=== PATIENT | male | born 1955 | race Caucasian/White ===

== ENCOUNTER → 2017-10-16 10:01 | Outpatient (CLI) | payer OTHER, SELFPAY ==
[2017-10-16 10:24] LABS: Add Manual Diff / Slide Review NO; Basophils Percent Auto 0.5 % (0-2); Hematocrit 41.2 % (41-53); Hemoglobin 13.9 g/dL (13.5-17.5); Mean Corpuscular HGB Conc 33.7 % (30-36); Mean Corpuscular Hemoglobin 28.8 PG (26-34); Mean Corpuscular Volume 85.5 fL (80-100); Monocytes Percent Auto 10.4 % (3-14); Neutrophils Absolute Auto 1900 /uL (3000-5900); Neutrophils Percent Auto 50.1 % (50-75); Platelet Count 227 X10^3/uL (150-400); Red Blood Cell Count 4.82 X10^6/uL (4.5-5.9); Red Cell Distribution Width 13.6 % (11.6-14.8); White Blood Cell Count 3.9 X10^3/uL (4.5-11.0)
[2017-10-16 10:47] LABS: Alanine Aminotransferase 33 IU/L (21-72); Albumin 4.4 g/dL (3.5-5.0); Albumin Globulin Ratio 1.4 (1.0-2.8); Alkaline Phosphatase 71 U/L (38-126); Aspartate Aminotransferase 38 IU/L (17-59); Bilirubin Total 0.8 mg/dL (0.2-1.3); Blood Urea Nitrogen 20 mg/dL (9-20); Calcium 9.1 mg/dL (8.4-10.2); Carbon Dioxide 27 mmol/L (22-32); Chloride 100 mmol/L (98-107); Estimated Glomerular Filt Rate > 60.0 mL/min (>60); Globulin 3.2 g/dL (1.7-4.1); Glucose 86 mg/dL (80-110); HEMOLYSIS < 15 (0-50); Lactate Dehydrogenase 427 U/L (313-618); Potassium 4.2 mmol/L (3.4-5.1); Sodium 141 mmol/L (137-145); Total Protein 7.6 g/dL (6.3-8.2)
[2017-10-20 07:56] LABS: Beta-2-Microglobulin 1.68 mg/L (< 2.52)
== END ==
PROVIDERS: PCP Internal Medicine; Visit Provider Internal Medicine Hematology & Oncology
DX: C82.80 Other types of follicular lymphoma, unspecified site (principal)
CPT/HCPCS: 36415; 80053; 82232; 83615; 85025

== ENCOUNTER → 2018-01-22 09:27 | Outpatient (CLI) | payer OTHER, SELFPAY ==
[2018-01-22 09:40] LABS: Add Manual Diff / Slide Review NO; Basophils Percent Auto 0.6 % (0-2); Eosinophils Percent Auto 2.2 % (2-4); Hematocrit 41.7 % (41-53); Lymphocytes Percent Auto 35.3 % (25-40); Mean Corpuscular HGB Conc 33.7 % (30-36); Mean Corpuscular Volume 86.1 fL (80-100); Neutrophils Absolute Auto 1700 /uL (3000-5900); Neutrophils Percent Auto 50.9 % (50-75); Platelet Count 278 X10^3/uL (150-400); Red Blood Cell Count 4.84 X10^6/uL (4.5-5.9); Red Cell Distribution Width 13.3 % (11.6-14.8); White Blood Cell Count 3.4 X10^3/uL (4.5-11.0)
[2018-01-22 09:58] LABS: Alanine Aminotransferase 30 IU/L (21-72); Albumin 4.6 g/dL (3.5-5.0); Albumin Globulin Ratio 1.5 (1.0-2.8); Alkaline Phosphatase 60 U/L (38-126); Aspartate Aminotransferase 41 IU/L (17-59); Bilirubin Total 0.7 mg/dL (0.2-1.3); Blood Urea Nitrogen 16 mg/dL (9-20); Calcium 9.3 mg/dL (8.4-10.2); Carbon Dioxide 30 mmol/L (22-32); Chloride 101 mmol/L (98-107); Estimated Glomerular Filt Rate > 60.0 mL/min (>60); Globulin 3.1 g/dL (1.7-4.1); Glucose 128 mg/dL (80-110); HEMOLYSIS < 15 (0-50); Lactate Dehydrogenase 478 U/L (313-618); Potassium 5.2 mmol/L (3.4-5.1); Sodium 141 mmol/L (137-145); Total Protein 7.7 g/dL (6.3-8.2)
[2018-01-23 15:11] LABS: Beta-2-Microglobulin 1.53 mg/L (< 2.52)
--- NOTE | 2018-01-31 12:34 | PC.NURSE ---
Mrs. Mccoy was transferred to me on the phone on 01/31/18 at 12:15 very upset because she had just found out that Frank's appointment had been moved to Monday with Dr. Ugalde instead of today with Janice Horn. She used a raised voice and swear words to say that she was very unhappy with the administrative process and finding out same day about an appointment being cancelled was not okay. I told her I would investigate and find out what happened. On investigating and with documentation we found out that when Frank was here on 01/22/18 for labs, he was told in person of Janice's absence and offered the appointment with Dr. Ugalde. I called Ian Mccoy back to explain it to her. She was surprised and said Frank never told her. I gave her the options to keep his appointment with Dr. Ugalde, establish with the [facility] credentialed Dr. Westbrook or to seek care at another facility. She stated she would talk with Frank and call us back.
== END ==
PROVIDERS: Internal Medicine Hematology & Oncology; PCP Internal Medicine; Visit Provider Nurse Practitioner Gerontology
DX: C85.90 Non-Hodgkin lymphoma, unspecified, unspecified site (principal)
CPT/HCPCS: 36415; 80053; 82232; 83615; 85025

== ENCOUNTER 2018-02-05 11:30 | Oncology outpatient (ONC) | payer OTHER, SELFPAY ==
[2017-10-31 15:49] VITALS: BP 126/83; PULSE 56; RESP 14; TEMP 36.8; O2SAT 98
--- NOTE | 2017-11-02 11:37 | ONC.GEN.PN ---
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 Baseline PET scan on 06/23/2017 confirmed extensive right axillary lymphadenopathy. The largest danelle mass measured 38 x 61 mm in diameter. SUV uptake was 5.6. Contralateral pathologic lymphadenopathy was also seen in the right axilla, with SUV uptake of 3.9. A danelle mesenteric mass was also noted, with SUV uptake of 4.5. There was evidence of uptake in the left periaortic lymph node, as well as in a left iliac lymph node. Patient was taken to the OR on 07/04/2017, were Dr. Pimentel did a wide excisional biopsy of the right axilla. A fair amount of danelle tissue was reportedly removed, about the size of a fist. Final pathology showed low-grade lymphoma, 8-10% of which was follicular, and the remaining 90% revealed more of a diffuse pathologic pattern. Observation only was recommended. The patient was then seen in [place], by Dr. Mi, for a 2nd opinion. Dr. Mi concurred with me, that cautious observation could be pursued for the short term. Future treatment options were also discussed with the patient during that visitation in [place]. History of Present Illness History Of Present Illness: 11/02/17 11:42 Frank returns today for routine triage. He is again accompanied by his very supportive , Ian. He was last seen in the clinic 8 weeks ago. Since that visitation, there has been unequivocal improvement in his overall strength and stamina. He denies any new lumps or bumps. He denies any recent fever, chills or night sweats. His appetite remains excellent. His spirits are good. He remains physically active. Home Medications and Allergies Allergies Allergy/AdvReac Type Severity Reaction Status Date / Time No Known Drug Allergies Allergy Verified 10/31/17 15:49 Exam Exam: Blood pressure 126/84. Temperature 98.2?. Pulse rate 56. O2 saturation on room air was 98%. Weight 199 lb. The oropharynx today was clear. Both lungs were clear to auscultation and percussion. Once again, there was no residual mass effect appreciated in the right axilla. Minimal lymphadenopathy was noted today in the left axilla. I felt a single danelle mass in the mid left inguinal area. No significant lymphadenopathy was noted today in the right inguinal area. No pathologic lymphadenopathy was noted today in the pre or postauricular, neck, chin, supraclavicular or epitrochlear areas. Heart sounds were fine. His abdomen was soft, nontender and without palpable organomegaly. There was no distal edema. Skin examination was unrevealing. Results - Labs Blood work from October 16 showed a white count of 3,900 with a normal differential. ANC 1,900. Hemoglobin 13.9. MCV 86. Platelet count 227,000. Beta 2 microglobulin level was 1.68. LDH was normal at 427. Creatinine was 0.8. Transaminases and alkaline phosphatase were normal. Total bilirubin 0.8. Impression Frank looks great today!! There has been unequivocal partial regression in his lymphadenopathy since his last visitation 8 weeks ago. His performance status remains excellent. Continued observation is warranted. Due to my upcoming departure from this clinic next month, I will request follow-up with our nurse practitioner in 3 months. His surveillance laboratory will be procured 1 week prior to that visitation. I wished him well.
--- NOTE | 2017-11-06 10:07 | ONC.NAV ---
Description: Reimbursement letter to [employer]: Per patient's request, this [employer] completed a letter advocating for reimbursement for their last visit with Dr. Katz, along with the [employer] medical reimbursement request forms. Pt had asked that we do this, although this [employer] did explain to him that it was unlikely to be successful. Sent to patient for submission.
[2018-02-05 12:16] VITALS: BP 151/76; PULSE 48; RESP 16; TEMP 36.2; O2SAT 99
--- NOTE | 2018-02-05 12:46 | ONC.PN ---
PN -Subjective Interval history: Frank Mccoy is a 62-year-old overall very healthy gentleman, returning today for follow-up of untreated advanced stage low-grade follicular lymphoma. He initially presented with right axillary and bilateral groin adenopathy in 04/2017, without B symptoms. Core needle biopsy of right axillary lymph node on 05/26/2017 was suggestive of follicular lymphoma, diffuse histologic pattern, grade 1-2, Ki-67 approximately 5-15%. He subsequently underwent excisional biopsy of right axillary lymph node on 07/04/2017. The result was confirmatory of initial diagnosis, consistent with follicular lymphoma, grade 1-2. Approximately 8-10% showed follicular/nodular histologic pattern, and the remaining 90% or so showed diffuse histologic pattern. Staging PET-CT 06/23/2017 showed hypermetabolic lymphadenopathy in bilateral axillary, left external iliac, bilateral inguinal, and a mesenteric danelle mass. Elsewhere, there were normal sized or slightly enlarged lower cervical/supraclavicular, left periaortic, right external iliac lymph nodes with low level FDG uptake. These results are consistent with at least stage III disease. Patient was evaluated by Dr. Lawrence Mi at [facility] in 08/2017. At the time, he still had palpable, somewhat painful/tender adenopathy in groins and right axilla. Since then, interestingly these lymph nodes have spontaneously regressed and he feels very well. He has not been able to palpate any enlarged lymph nodes lately. 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 He denies fever chills night sweats, and has not had any weight loss. Home Medications and Allergies Allergies Allergy/AdvReac Type Severity Reaction Status Date / Time No Known Drug Allergies Allergy Verified 10/31/17 15:49 Exam Vital signs: Last Vital Signs Temp 97.1 F L 02/05/18 12:16 Pulse 48 L 02/05/18 12:16 Resp 16 02/05/18 12:16 BP 151/76 H 02/05/18 12:16 Pulse Ox 99 02/05/18 12:16 - Constitutional positive no acute distress - Routine HEENT Exam Head: Present: normocephalic, atraumatic Eye: Present: EOMI, PERRL ENT: Present: mucous membranes moist - Routine Neck Exam Present: supple. Absent: lymphadenopathy, thyromegaly - Routine Respiratory Exam Present: Clear to auscultation bilaterally - Routine Cardiovascular Exam Present: RRR - Routine Abdominal Exam Present: soft. Absent: organomegaly, mass - Routine Extremities Exam Absent: edema Results - Imaging Additional studies: Procedures Closure of skin and subcutaneous tissue of other sites (06/18/10) Assessment and Plan (1) Follicular low grade B-cell lymphoma Current visit: Yes Status: Acute 62-year-old male, PS 0, with stage III, grade 1-2, follicular lymphoma, without extra danelle involvement. He has not received any therapy for this so far. Up until 4-6 months ago, he had palpable, slightly tender adenopathy in axillary and inguinal areas, but they have spontaneously regressed without any specific therapy. This spontaneous regression seems to have been triggered after excisional lymph node biopsy (perhaps the procedure somehow induced immune response). On exam today, there is no palpable adenopathy anywhere and the patient is completely non symptomatic. His labs are normal including CBC, CMP and beta 2 microglobulin. There is no indication to start therapy. I have given this gentleman a follow-up appointment for 6 months. A week prior to visit, we will schedule CT N/C/a/P with contrast, and labs including CBC, CMP, LDH and beta 2 microglobulin.
--- NOTE | 2018-02-05 13:06 | P.PNONC_ITS ---
PN -Subjective Interval history: Frank Mccoy is a 62-year-old overall very healthy gentleman, returning today for follow-up of untreated advanced stage low-grade follicular lymphoma. He initially presented with right axillary and bilateral groin adenopathy in 2016, without B symptoms. Core needle biopsy of right axillary lymph node on was suggestive of follicular lymphoma, diffuse histologic pattern, grade 1-2, Ki-67 approximately 5-15%. He subsequently underwent excisional biopsy of right axillary lymph node on 07/04/2017. The result was confirmatory of initial diagnosis, consistent with follicular lymphoma, grade 1-2. Approximately 8-10% showed follicular/nodular histologic pattern, and the remaining 90% or so showed diffuse histologic pattern. Staging PET-CT 2017 showed hypermetabolic lymphadenopathy in bilateral axillary, left external iliac, bilateral inguinal, and a mesenteric danelle mass. Elsewhere, there were normal sized or slightly enlarged lower cervical/supraclavicular, left periaortic, right external iliac lymph nodes with low level FDG uptake. These results are consistent with at least stage III disease. Patient was evaluated by Dr. Lawrence Mi at [facility] in 08/2017. At the time, he still had palpable, somewhat painful/tender adenopathy in groins and right axilla. Since then, interestingly these lymph nodes have spontaneously regressed and he feels very well. He has not been able to palpate any enlarged lymph nodes lately. 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 He denies fever chills night sweats, and has not had any weight loss. Home Medications and Allergies Allergies Allergy/AdvReac Type Severity Reaction Status Date / Time No Known Drug Allergies Allergy Verified 10/31/17 15:49 Exam Vital signs: Last Vital Signs Temp 97.1 F L 02/05/18 12:16 Pulse 48 L 02/05/18 12:16 Resp 16 02/05/18 12:16 BP 151/76 H 02/05/18 12:16 Pulse Ox 99 02/05/18 12:16 - Constitutional positive no acute distress - Routine HEENT Exam Head: Present: normocephalic, atraumatic Eye: Present: EOMI, PERRL ENT: Present: mucous membranes moist - Routine Neck Exam Present: supple. Absent: lymphadenopathy, thyromegaly - Routine Respiratory Exam Present: Clear to auscultation bilaterally - Routine Cardiovascular Exam Present: RRR - Routine Abdominal Exam Present: soft. Absent: organomegaly, mass - Routine Extremities Exam Absent: edema Results - Imaging Additional studies: Procedures Closure of skin and subcutaneous tissue of other sites (06/18/10) Assessment and Plan (1) Follicular low grade B-cell lymphoma Current visit: Yes Status: Acute 62-year-old male, PS 0, with stage III, grade 1-2, follicular lymphoma, without extra danelle involvement. He has not received any therapy for this so far. Up until 4-6 months ago, he had palpable, slightly tender adenopathy in axillary and inguinal areas, but they have spontaneously regressed without any specific therapy. This spontaneous regression seems to have been triggered after excisional lymph node biopsy (perhaps the procedure somehow induced immune response). On exam today, there is no palpable adenopathy anywhere and the patient is completely non symptomatic. His labs are normal including CBC, CMP and beta 2 microglobulin. There is no indication to start therapy. I have given this gentleman a follow-up appointment for 6 months. A week prior to visit, we will schedule CT N/C/a/P with contrast, and labs including CBC, CMP , LDH and beta 2 microglobulin.
== END 2018-02-06 12:00 ==
PROVIDERS: PCP Internal Medicine; Visit Provider Internal Medicine Hematology & Oncology
DX: C82.80 Other types of follicular lymphoma, unspecified site (principal)
CPT/HCPCS: 99215

== ENCOUNTER 2018-03-19 13:00 | Oncology outpatient (ONC) | payer OTHER, SELFPAY ==
--- NOTE | 2018-03-19 13:04 | ONC.APRN.PN ---
PN -Subjective Interval history: The patient is a 62-year-old male who is being seen in the clinic March 19, 2018 for routine surveillance of untreated advanced stage low-grade follicular lymphoma. He presents today stating ?I wanted to meet with you and get your opinion. The patient has previously consulted with Dr Katz, Dr Ugalde as well as [facility]. All remain in agreement no indication to treat until pt has persistent symptoms. Overall the patient reports he has been feeling ?great?. Activity tolerance is excellent, he remains quite active. Appetite is excellent specifically no early satiety. Weight is stable. No new pain. No new lumps or bumps. No night sweats. No chills. No fevers. No recent illnesses or infections. No issue with bladder or bowel habits. The patient reports he has 1 palpable lymph node in his left groin about the size of a BB which has not changed in the past 3 months, has not gotten any bigger also no pain associated. DIAGNOSIS: Recently confirmed stage III low-grade follicular non-Hodgkin lymphoma. I last saw this gentleman formally on 06/16/2107. During that visitation, the patient had a diagnostic PET scan procured on June 23, confirming extensive right axillary lymphadenopathy. The largest danelle mass measured 38 x 61 mm in diameter. The SUV was 5.6. Contralateral pathologic lymphadenopathy was also seen in the left axilla with an SUV of 3.9. A danelle mesenteric mass was also noted with an SUV of 4.5. There was evidence of uptake in a left periaortic lymph node as well as a left iliac lymph node. The patient then went to the OR on 07/04/2017, where Dr. Pimentel did a wide excisional biopsy of the right axilla. A fair amount of danelle tissue was reportedly removed, about the size of a fist. Final pathology showed low-grade lymphoma, 8% to 10%, which represented follicular, and the remaining 90% revealing more of a diffuse physiologic pattern. Observation only was recommended. Home Medications and Allergies Allergies Allergy/AdvReac Type Severity Reaction Status Date / Time No Known Drug Allergies Allergy Verified 10/31/17 15:49 Exam Narrative: well appearing - Constitutional positive no acute distress, positive average body habitus - Routine HEENT Exam Eye: Present: conjunctivae pink. Absent: conjunctival icterus, scleral injection ENT: Present: mucous membranes moist, oropharynx clear - Routine Neck Exam Present: supple. Absent: lymphadenopathy - Routine Chest/Breast/Axilla Exam Axillae: Absent: lymphadenopathy, mass, tenderness - Routine Respiratory Exam Present: Clear to auscultation bilaterally. Absent: rales, rhonchi, wheezes - Routine Cardiovascular Exam Present: RRR, S1, S2. Absent: murmur, gallop, rubs, JVD - Routine Abdominal Exam Present: soft, normoactive bowel sounds. Absent: tenderness, distended, organomegaly, mass - Routine Extremities Exam Absent: edema, calf tenderness - Routine Skin Exam Present: normal turgor. Absent: petechiae, rash - Routine Neurological Exam Present: alert, oriented X3 - Routine Psychiatric Exam Present: normal affect Results - Imaging Additional studies: Procedures Closure of skin and subcutaneous tissue of other sites (06/18/10) Assessment and Plan (1) Follicular low grade B-cell lymphoma Current visit: No Status: Acute The patient is a 62-year-old male who we are following for a recent diagnosis of stage III low-grade follicular non-Hodgkin lymphoma. Patient remains largely asymptomatic aside from 1 palpable lymph node in the patient's left groin. This node has not changed in the past 3 months per patient report. No B symptoms. Patient agrees with close observation. I reviewed with the patient today red flag symptoms including night sweats, chills, new lumps and bumps, new pain, change in appetite specifically early satiety. Change in bladder and or bowel habits. Unexplained weight loss. Abdominal bloating. Patient verbalizes understanding. Patient is requesting to continue with every 6 month visits. We discussed self exam palpating his lymph nodes. For any changes he will call and present to the clinic. The patient already has an appointment scheduled for August 2018 prior to which he will undergo CT scan of chest abdomen pelvis. - Time Spent with Patient 30 mins
[2018-03-19 13:08] VITALS: BP 146/87; PULSE 55; RESP 18; TEMP 36.9; O2SAT 98
== END 2018-03-20 12:00 ==
PROVIDERS: PCP Internal Medicine; Visit Provider Nurse Practitioner Gerontology
DX: C82.94 Follicular lymphoma, unspecified, lymph nodes of axilla and upper limb (principal)
CPT/HCPCS: 99214

== ENCOUNTER → 2018-08-06 10:08 | Outpatient (CLI) | payer OTHER, SELFPAY ==
[2018-08-06 11:06] LABS: Add Manual Diff / Slide Review NO; Basophils Absolute Auto 0 /uL (0-100); Basophils Percent Auto 0.4 % (0-2); Eosinophils Absolute Auto 100 /uL (0-450); Eosinophils Percent Auto 2.6 % (2-4); Hematocrit 41.9 % (41-53); Hemoglobin 13.8 g/dL (13.5-17.5); Lymphocytes Absolute Auto 1600 /uL (1100-4500); Mean Corpuscular HGB Conc 33.1 % (30-36); Mean Corpuscular Hemoglobin 28.7 PG (26-34); Mean Corpuscular Volume 86.8 fL (80-100); Monocytes Absolute Auto 400 /uL (0-900); Monocytes Percent Auto 10.1 % (3-14); Neutrophils Absolute Auto 2100 /uL (1500-7000); Neutrophils Percent Auto 49.9 % (50-75); Platelet Count 262 X10^3/uL (150-400); Red Blood Cell Count 4.82 X10^6/uL (4.5-5.9); Red Cell Distribution Width 13.2 % (11.6-14.8); White Blood Cell Count 4.3 X10^3/uL (4.5-11.0)
[2018-08-06 11:27] LABS: Alanine Aminotransferase 25 IU/L (21-72); Albumin 4.5 g/dL (3.5-5.0); Albumin Globulin Ratio 1.6 (1.0-2.8); Alkaline Phosphatase 77 U/L (38-126); Aspartate Aminotransferase 37 IU/L (17-59); BUN Creatinine Ratio 28.6 (6-22); Bilirubin Total 0.7 mg/dL (0.2-1.3); Blood Urea Nitrogen 20 mg/dL (9-20); Calcium 9.3 mg/dL (8.4-10.2); Carbon Dioxide 27 mmol/L (22-32); Chloride 100 mmol/L (98-107); Estimated Glomerular Filt Rate > 60.0 mL/min (>60); Globulin 2.8 g/dL (1.7-4.1); Glucose 96 mg/dL (80-110); HEMOLYSIS < 15 (0-50); Lactate Dehydrogenase 459 U/L (313-618); Potassium 4.4 mmol/L (3.4-5.1); Sodium 138 mmol/L (137-145); Total Protein 7.3 g/dL (6.3-8.2)
--- NOTE | 2018-08-06 11:27 | DI.CT.S_ITS ---
PROCEDURE: CT SOFT TISSUE NECK W CON INDICATIONS: surveillance TECHNIQUE: After the administration of intravenous contrast, 3.0 mm axial sections acquired from the sella to the aortic arch. Additional oblique axial 3.0 mm sections acquired through the pharynx. 3 mm thick coronal and sagittal reformats were generated. For radiation dose reduction, the following was used: automated exposure control. COMPARISON: [facility], CT, NECK/CHEST/ABD/PEL W CONTRAST, 06/02/2017, 8:01. [facility], [place], PET/CT SKULL BASE TO MID THIGH, 06/23/2017, 10:35. [facility], [place], CT CHEST ABD PEL W CON, 08/06/2018, 11:42. FINDINGS: Image quality: Excellent. Lymph nodes: No enlarged lymph nodes seen throughout the neck. Vessels: Visualized vasculature appears patent. Neck spaces: The oropharynx, nasopharynx, and pharynx demonstrate no mucosal lesions. The vocal cords, false vocal cords, pyriform sinuses, epiglottis, vallecula, and tongue base all appear normal. Extramucosal spaces appear unremarkable. Glands: The parotid and submandibular glands appear normal. Thyroid gland demonstrates no significant CT abnormality. Miscellaneous: Visualized brain and orbits appear normal. Lung apices appear clear. Superficial soft tissues appear normal. Bones: No suspicious bony lesions. Visualized sinuses and mastoids appear unremarkable. Degenerative changes are seen, including moderate loss of disc height at the C5-C6 level. IMPRESSION: No enlarged lymph nodes are seen. No masses are seen. Focal C5-C6 degenerative change. Dictated by: Mariano Leiva M.D. on 08/06/2018 at 15:53 Approved by: Mariano Leiva M.D. on 08/06/2018 at 15:56
--- NOTE | 2018-08-06 11:27 | DI.CT.S_ITS ---
PROCEDURE: CT CHEST ABD PEL W CON INDICATIONS: surveillance TECHNIQUE: After the administration of oral and intravenous contrast, 5 mm thick sections acquired from the lung apices to the symphysis. 5 mm coronal and sagittal reformats were performed, with additional 7 mm coronal MIP reformats through the lungs. For radiation dose reduction, the following was used: automated exposure control, adjustment of mA and/or kV according to patient size. COMPARISON: [facility], CT, NECK/CHEST/ABD/PEL W CONTRAST, 06/02/2017, 8:01. [facility], [place], PET/CT SKULL BASE TO MID THIGH, 06/23/2017, 10:35. FINDINGS: Image quality: Excellent. CHEST: Lungs and pleura: No acute airspace opacities. No pleural effusions or pneumothorax. Central and peripheral airways appear patent and normal in caliber. Mediastinum: Heart size is normal. No pericardial effusion. No mediastinal or hilar adenopathy by size criteria. Thoracic aorta and central pulmonary arteries are normal in size. Esophagus is normal in caliber. No hiatal hernia. Chest wall: No axillary or supraclavicular adenopathy by size criteria. Right axillary surgical clips are present. Thyroid gland is within normal limits. ABDOMEN: Solid organs: Liver is normal in size and enhancement. Gallbladder is within normal limits. Biliary system is non dilated. Pancreas enhances normally. Spleen is normal in size and enhancement. No adrenal nodules. Kidneys demonstrate normal size and enhancement, without hydronephrosis. Peritoneum and bowel: Bowel loops demonstrate normal wall thickness and caliber. No free fluid or air. Nodes and vessels: No retroperitoneal or mesenteric adenopathy by size criteria. Aorta and inferior vena cava are normal in size. Miscellaneous: No ventral hernias. PELVIS: Genitourinary: Bladder wall thickness is normal. Miscellaneous: No inguinal hernias or adenopathy. Bones: No suspicious bony lesions. No vertebral body compression fractures. IMPRESSION: No evidence of malignancy. Dictated by: Alicia Corrigan M.D. on 08/06/2018 at 15:51 Approved by: Alicia Corrigan M.D. on 08/06/2018 at 15:54
[2018-08-08 13:06] LABS: Beta-2-Microglobulin 1.38 mg/L (< 2.52)
== END ==
PROVIDERS: Internal Medicine Hematology & Oncology; PCP Internal Medicine; Referring Provider Internal Medicine Hematology & Oncology; Visit Provider Internal Medicine Hematology & Oncology
DX: C82.80 Other types of follicular lymphoma, unspecified site (principal); M47.812 Spondylosis without myelopathy or radiculopathy, cervical region
CPT/HCPCS: 36415; 70491; 71260; 74177; 80053; 82232; 83615; 85025; Q9967

== ENCOUNTER → 2019-07-16 09:56 | Outpatient (CLI) | payer OTHER, SELFPAY ==
--- NOTE | 2019-07-16 09:58 | DI.CT.S_ITS ---
PROCEDURE: CT CHEST ABD PEL W CON INDICATIONS: follicular lymphoma TECHNIQUE: After the administration of oral and intravenous contrast, 5 mm thick sections acquired from the lung apices to the symphysis. 5 mm coronal and sagittal reformats were performed, with additional 7 mm coronal MIP reformats through the lungs. For radiation dose reduction, the following was used: automated exposure control, adjustment of mA and/or kV according to patient size. COMPARISON: [facility], [place], PET/CT SKULL BASE TO MID THIGH, 06/23/2017, 10:35. [facility], CT, NECK/CHEST/ABD/PEL W CONTRAST, 06/02/2017, 8:01. [facility], CT, CT CHEST ABD PEL W CON, 08/06/2018, 11:42. FINDINGS: Image quality: Excellent. CHEST: Lungs and pleura: No acute airspace opacities. A few scattered calcified granuloma. A few small pulmonary cysts. No pleural effusions or pneumothorax. Central airways are patent. Small distal mucous airway plug. No bronchiectasis. Mediastinum: Heart size is normal. Small foci of air in the right atrium and a pulmonary artery, likely iatrogenic. No pericardial effusion. Right axillary surgical clips. Small round right axillary lymph node measuring 1 x 0.8 cm, (2/21), previously 0.9 x 0.8 cm. Thoracic aorta and central pulmonary arteries are normal in size. Esophagus is normal in caliber. No hiatal hernia. Chest wall: No axillary or supraclavicular adenopathy by size criteria. Thyroid gland is unremarkable. ABDOMEN: Solid organs: Liver is normal in size and enhancement. Gallbladder is unremarkable. Biliary system is non dilated. Pancreas enhances normally. Spleen is normal in size and enhancement. No adrenal nodules. Kidneys demonstrate normal size and enhancement, without hydronephrosis. Small cortical cysts which are too small to characterize. Peritoneum and bowel: Bowel loops demonstrate normal wall thickness and caliber. Appendix is normal. No free fluid or air. Nodes and vessels: No retroperitoneal or mesenteric adenopathy by size criteria. Small right inguinal lymph node measuring 1.1 x 0.9 cm, (2/139), previously 1.1 x 1.1 cm. Aorta and inferior vena cava are normal in size. Miscellaneous: No ventral hernias. PELVIS: Genitourinary: Bladder wall thickness is normal. Area of thickening and peripheral calcification in the right ischioanal fossa, (2/147), unchanged as 08/06/2018. Miscellaneous: No inguinal hernias or adenopathy. Bones: No suspicious bony lesions. No vertebral body compression fractures. IMPRESSION: 1. No new or enlarged adenopathy. Small right axillary and groin lymph nodes are unchanged since 08/06/2018. 2. No splenomegaly. Dictated by: Dexter Del Rio M.D. on 07/16/2019 at 15:36 Approved by: Dexter Del Rio M.D. on 07/16/2019 at 15:52
[2019-07-16 10:15] LABS: Add Manual Diff / Slide Review NO; Basophils Absolute Auto 0 /uL (0-100); Basophils Percent Auto 0.5 % (0-2); Eosinophils Absolute Auto 100 /uL (0-450); Eosinophils Percent Auto 0.8 % (2-4); Hematocrit 42.7 % (41-53); Hemoglobin 14.2 g/dL (13.5-17.5); Lymphocytes Absolute Auto 1000 /uL (1100-4500); Lymphocytes Percent Auto 15.8 % (25-40); Mean Corpuscular HGB Conc 33.3 % (30-36); Mean Corpuscular Hemoglobin 28.9 PG (26-34); Mean Corpuscular Volume 86.8 fL (80-100); Monocytes Absolute Auto 400 /uL (0-900); Monocytes Percent Auto 5.9 % (3-14); Neutrophils Absolute Auto 5100 /uL (1500-7000); Platelet Count 283 X10^3/uL (150-400); Red Blood Cell Count 4.92 X10^6/uL (4.5-5.9); White Blood Cell Count 6.6 X10^3/uL (4.5-11.0)
[2019-07-16 10:26] LABS: Alanine Aminotransferase 24 IU/L (<50); Albumin 4.7 g/dL (3.5-5.0); Albumin Globulin Ratio 1.5 (1.0-2.8); Alkaline Phosphatase 77 U/L (38-126); Aspartate Aminotransferase 39 IU/L (17-59); BUN Creatinine Ratio 25.6 (6-22); Bilirubin Total 0.7 mg/dL (0.2-1.3); Blood Urea Nitrogen 23 mg/dL (9-20); Calcium 9.6 mg/dL (8.4-10.2); Carbon Dioxide 25 mmol/L (22-32); Chloride 104 mmol/L (98-107); Estimated Glomerular Filt Rate > 60.0 mL/min (>60); Globulin 3.2 g/dL (1.7-4.1); Glucose 98 mg/dL (80-110); HEMOLYSIS < 15 (0-50); Lactate Dehydrogenase 499 U/L (313-618); Potassium 4.8 mmol/L (3.4-5.1); Sodium 139 mmol/L (137-145); Total Protein 7.9 g/dL (6.3-8.2)
--- NOTE | 2019-07-16 11:49 | DI.CT.S_ITS ---
PROCEDURE: CT SOFT TISSUE NECK W CON INDICATIONS: follicular lymphoma TECHNIQUE: After the administration of intravenous contrast, 3.0 mm axial sections acquired from the sella to the aortic arch. Additional oblique axial 3.0 mm sections acquired through the pharynx. 3 mm thick coronal and sagittal reformats were generated. For radiation dose reduction, the following was used: automated exposure control. COMPARISON: [facility], CT, CT SOFT TISSUE NECK W CON, 08/06/2018, 11:42. [facility], [place], PET/CT SKULL BASE TO MID THIGH, 06/23/2017, 10:35. [facility], CT, NECK/CHEST/ABD/PEL W CONTRAST, 06/02/2017, 8:01. FINDINGS: Image quality: Excellent. Lymph nodes: No enlarged lymph nodes seen throughout the neck. Vessels: Visualized vasculature appears patent. Neck spaces: The oropharynx, nasopharynx, and pharynx demonstrate no mucosal lesions. The vocal cords, false vocal cords, pyriform sinuses, epiglottis, vallecula, and tongue base all appear normal. Extramucosal spaces appear unremarkable. Glands: The parotid and submandibular glands appear normal. Thyroid gland is normal. Miscellaneous: Visualized brain and orbits appear normal. Lung apices appear clear. Superficial soft tissues appear normal. Bones: No suspicious bony lesions. Spine degenerative disc disease and facet arthropathy.Visualized sinuses and mastoids appear unremarkable. IMPRESSION: 1. No lymphadenopathy based on size criteria. 2. No mucosal based masses Dictated by: Mireille Pierre MD, PhD on 07/16/2019 at 17:07 Approved by: Mireille Pierre MD, PhD on 07/16/2019 at 17:13
[2019-07-18 15:15] LABS: Beta-2-Microglobulin 1.65 mg/L (< 2.52)
== END ==
PROVIDERS: PCP Internal Medicine; Referring Provider Internal Medicine; Visit Provider Internal Medicine Hematology & Oncology
DX: C82.80 Other types of follicular lymphoma, unspecified site (principal)
CPT/HCPCS: 36415; 70491; 71260; 74177; 80053; 82232; 83615; 85025; Q9967

== ENCOUNTER 2019-11-10 17:43 | Emergency (ER) | payer OTHER, SELFPAY ==
[2019-11-10 17:47] VITALS: BP 159/89; PULSE 66; RESP 18; TEMP 36.8; O2SAT 100
--- NOTE | 2019-11-10 17:48 | DI.RAD.S_ITS ---
PROCEDURE: XR FINGER RT MIN 2V INDICATIONS: crush injury 3 and 4th fingers TECHNIQUE: AP hand, 2 views of the right third and fourth finger(s) acquired. COMPARISON: None. FINDINGS: Bones: Age-indeterminate dorsal avulsion fracture fragment over the DIP joint of the fourth finger. No other fractures visualized. Background multilevel degenerative changes of the right wrist and hand. No suspicious intraosseous lesion. Soft tissues: No suspicious soft tissue calcifications. IMPRESSION: Age-indeterminate avulsion fragment over the dorsal aspect of the right fourth finger distal interphalangeal joint. Recommend correlation with point tenderness on examination. Dictated by: Karthik Fields M.D. on 11/10/2019 at 18:17 Approved by: Karthik Fields M.D. on 11/10/2019 at 18:18
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
[2019-11-10] MEDS: cephALEXin 250 MG PREPACK 1 BOTTLE MISC (18:42)
[2019-11-10 19:23] VITALS: BP 137/89; PULSE 64; RESP 18; O2SAT 97
== END 2019-11-10 19:24 | disposition home or self-care (01) ==
PROVIDERS: Emergency Provider Emergency Medicine; PCP Internal Medicine
DX: S62.654B Nondisplaced fracture of middle phalanx of right ring finger, initial encounter for open fracture (principal); W23.0XXA Caught, crushed, jammed, or pinched between moving objects, initial encounter
CPT/HCPCS: 12001; 64450; 73140; 99283

== ENCOUNTER → 2020-10-15 16:17 | Outpatient (CLI) | payer OTHER, SELFPAY ==
--- NOTE | 2020-10-15 | DI.RAD.S_ITS ---
PROCEDURE: XR SHOULDER LT MIN 2V INDICATIONS: Impingement Syndrome,Cervical Radiculopathy TECHNIQUE: 3 views of the shoulder were acquired. COMPARISON: None. FINDINGS: Bones: The left glenohumeral joint demonstrates joint space narrowing and an osteophyte of the inferior humeral head the acromioclavicular joint is widened. No fracture or dislocation. Soft tissues: No suspicious soft tissue calcifications. IMPRESSION: 1. Degenerative changes of the glenohumeral joint with joint space narrowing. 2. Widening of the acromioclavicular joint. Dictated by: Mauricio Villagran M.D. on 10/15/2020 at 18:48 Approved by: Mauricio Villagran M.D. on 10/15/2020 at 18:50
--- NOTE | 2020-10-15 | DI.RAD.S_ITS ---
PROCEDURE: XR CERVICAL SPINE 2V OR 3V INDICATIONS: Impingement Syndrome,Cervical Radiculopathy TECHNIQUE: 3 view(s) of the cervical spine were acquired. COMPARISON: None. FINDINGS: Bones: No fractures or dislocations to the T1 level. The lateral masses of C1 appear intact on the odontoid view. No suspicious bony lesions. Multilevel degenerative changes. There is grade 1 anterolisthesis of C4-5. There is disc space narrowing of C4-5 and C5-6. Soft tissues: No prevertebral soft tissue swelling. IMPRESSION: Multilevel degenerative changes with disc disease at C4-5 and C5-6. Dictated by: Mauricio Villagran M.D. on 10/15/2020 at 18:51 Approved by: Mauricio Villagran M.D. on 10/15/2020 at 18:53
== END ==
PROVIDERS: PCP Physician Assistant; Referring Provider Physician Assistant; Visit Provider Physician Assistant
DX: M75.42 Impingement syndrome of left shoulder (principal); M47.22 Other spondylosis with radiculopathy, cervical region; M50.121 Cervical disc disorder at C4-C5 level with radiculopathy
CPT/HCPCS: 72040; 73030

== ENCOUNTER → 2022-06-13 06:39 | Outpatient (CLI) | payer MEDICARE, OTHER, SELFPAY ==
--- NOTE | 2022-06-13 06:41 | DI.US.S_ITS ---
PROCEDURE: US SCROTUM INDICATIONS: TESTICULAR LUMP TECHNIQUE: Real-time scanning was performed of the scrotum and testicles, with image documentation. Color and pulse Doppler interrogation was performed of both testicles. COMPARISON: None. FINDINGS: Right: Testicle is normal in size at 5.6 x 3.4 x 2.0 cm, and homogenous in echotexture. Epididymis is normal in overall size and morphology. No hydrocele or varicoceles. Overlying scrotal skin is mildly thickened. Left: Testicle is normal in size at 5.3 x 3.2 x 1.9 cm, and homogeneous in echotexture. Epididymis is normal in overall size and morphology. No hydrocele or varicoceles. Overlying scrotal skin is mildly thickened.. Soft tissues: Within the midline of the scrotum inferior to the testicle at the area palpable concern there is a focus of echogenicity with mild increased vascularity and calcifications measuring 2.1 x 0.9 x 1.0 cm. A 2nd focus within the perineal region inferior to the scrotum is present with calcifications measuring approximately 5.0 x 2.2 cm. It is not well visualized. Doppler: Color and pulse Doppler demonstrate normal and symmetric arterial flow in both testicles. IMPRESSION: Mild scrotal thickening with a focus of echogenicity within the midline as described above CT. Overall appearance is suggestive of a fluid collection possibly phlegmon. Recommend interval follow-up as clinically indicated. Focus of calcification inferior to the scrotum within the perineal region. It is indeterminate on the basis of this exam and urology follow-up is recommended. Dictated by: Jeri Soto M.D. on 06/14/2022 at 13:20 Approved by: Jeri Soto M.D. on 06/14/2022 at 13:22
== END ==
PROVIDERS: PCP Physician Assistant; Referring Provider Physician Assistant; Visit Provider Physician Assistant
DX: N50.89 Other specified disorders of the male genital organs (principal)
CPT/HCPCS: 76870

== ENCOUNTER → 2022-07-31 08:37 | Outpatient (CLI) | payer MEDICARE, OTHER, SELFPAY ==
--- NOTE | 2022-07-31 08:39 | DI.MRI.S_ITS ---
PROCEDURE: MR PELIS WO/W CON INDICATIONS: SCROTAL SWELLING TECHNIQUE: Coronal HASTE, sagittal T2 FSE, axial T1 FSE, axial and coronal nonbreath-hold T2 FSE. Axial dynamic VIBE during administration of contrast. Post-contrast axial and coronal VIBE/2-D FLASH with fat saturation from the iliac crests to the symphysis. Restricted diffusion. COMPARISON: [facility], CT, CT CHEST ABD PEL W CON, 07/16/2019, 11:05. [facility], US, US SCROTUM, 06/13/2022, 7:12. FINDINGS: Image quality: Excellent. Bowel and peritoneum: No pathologic free pelvic fluid. Inferior colon and small bowel loops are normal in caliber. Diverticulosis. Genitourinary system: Right perineum heterogeneous soft tissue thickening measuring 4 cm, (), similar to 2019. On the prior CT there is heterogeneous calcification which corresponds to the signal dropout on the MRI. No conspicuous enhancement. No restricted diffusion. There is minimal heterogeneous T2 signal in this region. No scrotal collection is seen. No suspicious scrotal enhancement. No testicular mass. No penile mass. Bladder wall has a trabeculated appearance. Prominent prostate gland. Distal ureters are non distended. Nodes and vessels: No pathologic pelvic or inguinal adenopathy by size criteria. Iliac vessels are normal in caliber. Soft tissues: No inguinal hernias. Bones: Marrow is normal in overall signal. IMPRESSION: 1. Similar heterogeneous soft tissue thickening at the right perineum compared to 2019. No suspicious enhancement or restricted diffusion demonstrated. This could be the result prior infectious/inflammatory etiology. 2. No scrotal abscess or suspicious enhancement demonstrated. 3. No testicular mass or penile mass. 4. Bladder has a trabeculated appearance. This could be seen in the setting of bladder outlet obstruction. Prominent prostate gland. Dictated by: Dexter Del Rio M.D. on 07/31/2022 at 13:52 Approved by: Dexter Del Rio M.D. on 07/31/2022 at 14:19
== END ==
PROVIDERS: Referring Provider Student in an Organized Health Care Education/Training Program; Visit Provider Student in an Organized Health Care Education/Training Program
DX: N50.89 Other specified disorders of the male genital organs (principal)
CPT/HCPCS: 72197; A9579

== ENCOUNTER 2022-08-17 13:29 | Day surgery (SDC) | payer MEDICARE, OTHER, SELFPAY ==
[2022-08-17 14:51] VITALS: BMI 25.0
[2022-08-17 14:58] VITALS: BP 132/83; PULSE 48; RESP 16; TEMP 36.1; O2SAT 99
[2022-08-17] MEDS: LACTATED RINGERS 1,000 ML 42 ML IV (15:05)
--- NOTE | 2022-08-17 16:03 | PM.OP.COLON ---
Operative Date/Time/Diagnoses Date of procedure: 08/17/22 Pre-op diagnosis: See indication Procedure & Clinicians Study performed: Colonoscopy Indications: Screening Surgeon: Buster Cunha Procedure Notes Procedure in detail: After informed consent was obtained the patient was placed left lateral decubitus position. The video colonoscope was introduced the rectum slowly advanced cecum. Preparation was good. On slow withdrawal mucosa was carefully examined. The scope was removed. The patient tolerated procedure well. Blood loss none Complications none Sedation mac Findings One. Scattered diverticula in the sigmoid colon 2. Otherwise negative colonoscopy to cecum Mr. Radha Jin will need follow-up colonoscopy for 10 years.
[2022-08-17 16:07] VITALS: BP 99/68; PULSE 65; RESP 18; TEMP 36.6; O2SAT 98
--- NOTE | 2022-08-17 16:08 | P.HP_ITS ---
History of Present Illness History of Present Illness Date Patient Seen: 08/17/22 Chief complaint: Colonoscopy Narrative: Need for colorectal cancer screening REPLACED BY [facility] Social History household members: family Smoking Status: Never smoker alcohol intake: current Meds Home Medications and Allergies Home Medications Medication Instructions Recorded Confirmed Type No Known Home Medications 08/17/22 08/17/22 History Allergies Allergy/AdvReac Type Severity Reaction Status Date / Time No Known Drug Allergies Allergy Verified 08/17/22 14:49 Exam Vital Signs (past 8 hours): - 08/17/22 14:58 08/17/22 16:07 Temperature 97.0 F L 97.8 F Pulse Rate 48 L 65 Respiratory Rate 16 18 Blood Pressure 132/83 99/68 Pulse Oximetry 99 98 Oxygen Delivery Method Room Air Room Air Oxygen Flow Rate 0 Oxygen Delivery Method Room Air Oxygen Flow Rate 0 Narrative Exam Narrative: Oropharynx free of lesions Chest clear to auscultation percussion Cardiac exam reveals no S3 or murmur Assessment & Plan Assessment & Plan narrative: Need for colorectal cancer screening. Risks benefits alternatives to colonoscopy have been explained.
[2022-08-17 16:12] VITALS: BP 111/78; PULSE 63; RESP 13; TEMP 36.6; O2SAT 98
[2022-08-17 16:17] VITALS: BP 114/77; PULSE 58; RESP 18; TEMP 36.3; O2SAT 98
[2022-08-17 16:20] VITALS: BP 120/83; PULSE 58; RESP 24; TEMP 36.6; O2SAT 99
== END 2022-08-17 16:45 | disposition home or self-care (01) ==
PROVIDERS: PCP Physician Assistant; Referring Provider Internal Medicine Gastroenterology; Visit Provider Internal Medicine Gastroenterology
PROC: 0DJD8ZZ Inspection of Lower Intestinal Tract, Via Natural or Artificial Opening Endoscopic (ICD-10-PCS; CPT 45378; principal; 2022-08-17 14:30)
DX: Z12.11 Encounter for screening for malignant neoplasm of colon (principal); K57.30 Diverticulosis of large intestine without perforation or abscess without bleeding
CPT/HCPCS: G0121; J2704

== ENCOUNTER 2023-06-20 19:15 | Emergency (ER) | payer MEDICARE, OTHER, SELFPAY ==
[2023-06-20] VITALS (11 sets, daily range): BP systolic 142–189; BP diastolic 78–99; PULSE 56–68; RESP 18–22; TEMP 36.5; O2SAT 96–99; BMI 25.0
--- NOTE | 2023-06-20 19:27 | DI.RAD.S_ITS ---
PROCEDURE: XR CHEST 1V INDICATIONS: chest pain TECHNIQUE: One view of the chest was acquired. COMPARISON: None. FINDINGS: Surgical changes and devices: Right axillary surgical clips. Overlying monitoring wires. Lungs and pleura: Lungs are clear. No pleural effusions or pneumothorax. Mediastinum: Mediastinal contours appear normal. Heart size is normal. Bones and chest wall: No suspicious bony lesions. Overlying soft tissues appear unremarkable. IMPRESSION: No acute cardiopulmonary abnormality is seen. Dictated by: Sharmila Martinez M.D. on 06/20/2023 at 20:24 Approved by: Sharmila Martinez M.D. on 06/20/2023 at 20:25
[2023-06-20] MEDS: ASPIRIN 81 MG CHEW TAB 324 MG PO (19:40)
[2023-06-20 20:09] LABS: Add Manual Diff / Slide Review NO; Basophils Absolute Auto 100 /uL (0-100); Basophils Percent Auto 0.5 % (0-2); Eosinophils Absolute Auto 100 /uL (0-450); Eosinophils Percent Auto 0.7 % (2-4); Hematocrit 41.2 % (41-53); Hemoglobin 13.7 g/dL (13.5-17.5); Lymphocytes Absolute Auto 1500 /uL (1100-4500); Mean Corpuscular HGB Conc 33.2 % (30-36); Mean Corpuscular Hemoglobin 28.9 PG (26-34); Monocytes Absolute Auto 900 /uL (0-900); Neutrophils Absolute Auto 7900 /uL (1500-7000); Neutrophils Percent Auto 75.8 % (50-75); Platelet Count 288 X10^3/uL (150-400); Red Blood Cell Count 4.73 X10^6/uL (4.5-5.9); Red Cell Distribution Width 13.2 % (11.6-14.8); White Blood Cell Count 10.4 X10^3/uL (4.5-11.0)
[2023-06-20 20:18] LABS: PTT Partial Thromboplastin Tim 36 SECONDS (25.1-36.5)
[2023-06-20 20:20] LABS: Alanine Aminotransferase 23 IU/L (<50); Albumin 4.7 g/dL (3.5-5.0); Albumin Globulin Ratio 1.4 (1.0-2.8); Alkaline Phosphatase 73 U/L (38-126); Aspartate Aminotransferase 34 IU/L (17-59); BUN Creatinine Ratio 20.3 (6-22); Bilirubin Total 0.7 mg/dL (0.2-1.3); Blood Urea Nitrogen 13 mg/dL (9-20); Calcium 9.5 mg/dL (8.4-10.2); Carbon Dioxide 20 mmol/L (22-32); Chloride 105 mmol/L (98-107); Creatine Kinase 166 U/L (55-170); Estimated Glomerular Filt Rate > 60 mL/min (>60); Globulin 3.3 g/dL (1.7-4.1); Glucose 103 mg/dL (80-110); HEMOLYSIS < 15 (0-50); Lipase 54 U/L (23-300); Potassium 3.9 mmol/L (3.4-5.1); Sodium 135 mmol/L (137-145)
--- NOTE | 2023-06-20 20:29 | ED_ITS ---
HPI - Chest Pain General Chief Complaint: Chest Pain Stated Complaint: chest px Time Seen by Provider: 06/20/23 20:18 Source: patient Mode of arrival: Ambulatory Limitations: no limitations History of Present Illness HPI narrative: Patient 67-year-old healthy male very active presents today with chest discomfort. He reports that he was driving to take his to her cardiology appointment. She recently had cardiac procedure and had a complication from it they were going to have a follow-up appointment. He describes that he felt like maybe he swallowed something down the wrong pipe had some discomfort throughout the day. He noticed when he was in a chair he leaned over he thought it maybe made it a little bit worse but has not really been able to reproduce it. He has not had any significant shortness of breath with exertion. It has not radiating. He describes it as sort of a dull ache. He has no known coronary artery disease. He reports that he mountain bikes 3 hours at a time without any issue. Related Data Home Medications Medication Instructions Recorded Confirmed No Known Home Medications 08/17/22 10/17/22 Allergies Allergy/AdvReac Type Severity Reaction Status Date / Time No Known Drug Allergies Allergy Verified 08/17/22 14:49 Patient History Social History household members: family Smoking Status: Never smoker alcohol intake: current Smoking Status: Never smoker alcohol intake frequency: 3 or more drinks per day Substance Use Type: marijuana Exam Initial Vital Signs Initial Vital Signs: Vital Signs Temperature 97.7 F 06/20/23 19:22 Pulse Rate 68 06/20/23 19:22 Respiratory Rate 18 06/20/23 19:22 Blood Pressure 189/99 H 06/20/23 19:22 Pulse Oximetry 99 06/20/23 19:22 Oxygen Delivery Method Room Air 06/20/23 19:22 GENERAL: Alert pleasant 67-year-old male HEENT: Head atraumatic,EOMI, pupils reactive, face symmetric, moist mucous membranes CARDIOVASCULAR: Regular rate and rhythm without murmurs, rubs or gallops. RESPIRATORY: Breath sounds equal bilaterally, no wheezes rales or rhonchi. ABDOMEN: Soft, nontender. Normoactive bowel sounds all 4 quadrants. No guarding or rebound. EXTREMITIES: Normal range of motion, no clubbing or edema. Neurovascularly intact NEUROLOGICAL: Alert and oriented x4. SKIN: Warm, dry, no laceration, no petechiae, no rashes or lesions. Scores HEART Score Heart Score history: Slightly Suspicious Heart Score EKG: Normal Heart Score Age: > or = 65 years old Heart Score risk factors: No known risk factors Heart Score troponin: < or = to normal limit Heart Score Total: 2 Course Orders Ordered: ED Orders 06/20/23 19:27 XR chest 1V Stat EKG-12 Lead Stat 06/20/23 19:39 Complete Blood Count AUTO DIFF Stat Comprehensive Metabolic Panel Stat Lipase Stat Magnesium Stat PTT Partial Thromboplastin Marcos Stat Prothrombin Time INR Stat Troponin & CK Cardiac Panel Stat 06/20/23 20:58 EKG-12 Lead Stat 06/20/23 21:30 Trop I [Troponin I] Stat Discontinued Medications Aspirin (Aspirin 81 Mg Chew Tab) 324 mg PO NOW ONE Stop: 06/20/23 19:28 Last Admin: 06/20/23 19:40 Dose: 324 mg Documented By: BS Vital Signs Vital signs: Vital Signs - 8 hr 06/20/23 19:22 06/20/23 19:33 06/20/23 19:34 Temperature 97.7 F Pulse Rate 68 61 62 Respiratory Rate 18 20 22 Blood Pressure 189/99 H Pulse Oximetry 99 97 96 Oxygen Delivery Method Room Air Room Air 06/20/23 19:34 06/20/23 20:00 06/20/23 20:00 Temperature Pulse Rate 61 Respiratory Rate 21 Blood Pressure 164/95 H 152/90 H Pulse Oximetry 96 Oxygen Delivery Method 06/20/23 20:30 06/20/23 20:30 06/20/23 21:00 Temperature Pulse Rate 59 L 58 L Respiratory Rate 18 20 Blood Pressure 149/78 H Pulse Oximetry 96 96 Oxygen Delivery Method 06/20/23 21:00 06/20/23 21:30 06/20/23 21:30 Temperature Pulse Rate 56 L Respiratory Rate 22 Blood Pressure 142/88 H 162/90 H Pulse Oximetry 97 Oxygen Delivery Method Room Air 06/20/23 22:00 06/20/23 22:00 06/20/23 22:30 Temperature Pulse Rate 60 63 Respiratory Rate 19 19 Blood Pressure 151/87 H Pulse Oximetry 97 97 Oxygen Delivery Method Room Air 06/20/23 22:30 06/20/23 22:52 02/06/24 22:53 Temperature Pulse Rate 64 Respiratory Rate 21 Blood Pressure 184/99 H 154/94 H Pulse Oximetry 96 Oxygen Delivery Method MDM - Chest Pain Lab Data 06/20/23 19:39 06/20/23 19:39 Labs: Lab Results 06/20/23 06/20/23 Range/Units 19:39 21:30 WBC 10.4 (4.5-11.0) X10^3/uL RBC 4.73 (4.5-5.9) X10^6/uL Hgb 13.7 (13.5-17.5) g/dL Hct 41.2 (41-53) % MCV 87.0 (80-100) fL MCH 28.9 (26-34) PG MCHC 33.2 (30-36) % RDW 13.2 (11.6-14.8) % Plt Count 288 (150-400) X10^3/uL Neut % (Auto) 75.8 H (50-75) % Lymph % (Auto) 14.0 L (25-40) % [place] % (Auto) 9.0 (3-14) % Eos % (Auto) 0.7 L (2-4) % Baso % (Auto) 0.5 (0-2) % Neut # (Auto) 7900 H (4015-8359) /uL Lymph # (Auto) 1500 (6140-6272) /uL [place] # (Auto) 900 (0-900) /uL Eos # (Auto) 100 (0-450) /uL Baso # (Auto) 100 (0-100) /uL PT 11.0 (9.4-12.5) SECONDS INR 1.0 (0.9-1.3) APTT 36 (25.1-36.5) SECONDS Sodium 135 L (137-145) mmol/L Potassium 3.9 (3.4-5.1) mmol/L Chloride 105 (98-107) mmol/L Carbon Dioxide 20 L (22-32) mmol/L BUN 13 (9-20) mg/dL Creatinine 0.64 L (0.66-1.25) mg/dL Estimated GFR > 60 (>60) mL/min BUN/Creatinine Ratio 20.3 (6-22) Glucose 103 (80-110) mg/dL Calcium 9.5 (8.4-10.2) mg/dL Magnesium 2.0 (1.6-2.3) mg/dL Total Bilirubin 0.7 (0.2-1.3) mg/dL AST 34 (17-59) IU/L ALT 23 (<50) IU/L Alkaline Phosphatase 73 (38-126) U/L Total Creatine Kinase 166 (55-170) U/L Troponin I < 0.012 < 0.012 (0.01-0.034) ng/mL Total Protein 8.0 (6.3-8.2) g/dL Albumin 4.7 (3.5-5.0) g/dL Globulin 3.3 (1.7-4.1) g/dL Albumin/Globulin Ratio 1.4 (1.0-2.8) Lipase 54 (23-300) U/L Imaging Data Chest x-ray: Radiologist's Impression: PROCEDURE: XR CHEST 1V INDICATIONS: chest pain TECHNIQUE: One view of the chest was acquired. COMPARISON: None. FINDINGS: Surgical changes and devices: Right axillary surgical clips. Overlying monitoring wires. Lungs and pleura: Lungs are clear. No pleural effusions or pneumothorax. Mediastinum: Mediastinal contours appear normal. Heart size is normal. Bones and chest wall: No suspicious bony lesions. Overlying soft tissues appear unremarkable. IMPRESSION: No acute cardiopulmonary abnormality is seen. Dictated by: Sharmila Martinez M.D. on 06/20/2023 at 20:24 ECG Data Attestation: I personally reviewed and interpreted this ECG as follows: Interpretation: EKG 1. Sinus rhythm rate 59 MO interval 154 QRS [address] changes no priors to compare EKG 2. Sinus rhythm rate 54 no ischemic changes similar to prior MDM Narrative Medical decision making narrative: Patient is 67-year-old male presents today with some atypical chest pain he has no risk factors a low risk heart score no EKG changes and 2- troponins. Pain is sometimes reproducible nonradiating. Blood work has been reviewed no clinical significant abnormalities Chest x-ray reviewed no abnormalities Patient is very typical chest pain is basically resolved here in the ED. His EKGs do not show any evidence of ischemia blood work is overall reassuring. At this time recommend outpatient follow-up. Discussed with him that he is low risk however warned him if his symptoms change or worsen in nature then he should return to the ED Discharge Plan Departure Patient Disposition: Home Clinical Impression: Atypical chest pain Instructions: DI for Atypical Chest Pain Activity Restrictions/Additional Instructions: *You have been diagnosed with atypical chest pain *What to do: At this time blood work is overall reassuring. I do recommend you follow-up with your primary care provider you may require further testing such as cardiac stress test and echocardiogram however not need to stay in the hospital today *Continue to take medications as directed *Follow up with your primary care provider in 2-3 days or call [phone] *Return to ER if you should have increasing chest pain shortness of breath or any new, worsening or concerning symptoms Prescriptions: No Action No Known Home Medications Referrals: Miscellaneous,Doctor, [Primary Care Provider] - Stand Alone Forms: Patient Portal/API
[2023-06-20 20:32] LABS: Troponin I < 0.012 ng/mL (0.01-0.034)
[2023-06-20 21:59] LABS: Troponin I < 0.012 ng/mL (0.01-0.034)
== END 2023-06-20 23:00 | disposition home or self-care (01) ==
PROVIDERS: Emergency Provider Emergency Medicine
DX: R07.89 Other chest pain (principal)
CPT/HCPCS: 36415; 71045; 80053; 82550; 83690; 83735; 84484; 85025; 85610; 85730; 93005; 93010; 99284

== ENCOUNTER → 2024-07-26 13:01 | Outpatient (CLI) | payer MEDICARE, OTHER, SELFPAY | PROVIDERS: Referring Provider Student in an Organized Health Care Education/Training Program; Visit Provider Physician Assistant | DX: T81.89XA Other complications of procedures, not elsewhere classified, initial encounter (principal); S31.501A Unspecified open wound of unspecified external genital organs, male, initial encounter | CPT/HCPCS: 97597; 99204; 99213 ==

== ENCOUNTER → 2024-08-02 10:13 | Outpatient (CLI) | payer MEDICARE, OTHER, SELFPAY ==
--- NOTE | 2024-08-02 | OV.WND_ITS ---
PROGRESS NOTE DETAILS PATIENT NAME: LASHONDA PARHAM DATE: PATIENT NUMBER: [id number] CLINI PATIENT DATE OF : 1955 PHYSI PATIENT 08/02/2024 JACK: JOYCE WHITEHEAD R.N. SUBJECTIVE CHIEF COMPLAINT THIS INFORMATION WAS OBTAINED FROM THE PATIENT. I'VE NOTICED LESS PAIN WHEN I BEND OVER. GENERAL NOTES SURGICAL WOUND RIGHT PERINEAL. ALLERGIES NO KNOWN ALLERGIES HPI THIS INFORMATION WAS OBTAINED FROM THE PATIENT. LOCATION: RIGHT PERINEAL DURATION: 06/12/24 CONTEXT: SURGICAL 68 YEAR OLD MALE WITH PMH OF LYMPHOMA PRESENTS FOR SURGICAL WOUND TO PERINEAL AREA. PATIENT HAD A FIBROUS NODULE REMOVED ON 06/11/2024 THAT WAS CONSIDERED TO HAVE BEEN CAUSED BY LONG-TERM MOUNTAIN BIKING. HIS BIOPSY RETURNED NEGATIVE FOR NEOPLASM, ABSCESS AND GRANULOMA, POSITIVE FOR DENSELY FIBROUS NODULE WITH FOREIGN BODY INFLAMMATION AND DYSTROPHIC CALCIFICATION UNCERTAIN ETIOLOGY. PATIENT DENIES MUCH PAIN. WOUND HAS BEEN SLOW TO HEAL BUT IN LAST WEEK HAS ALMOST FULLY HEALED. HE DENIES ANY FEVER OR CHILLS AND REPORTS OTHERWISE FEELING WELL. LABS: 06/11/2024: PATHOLOGY DENSELY FIBROUS NODULE WITH FOREIGN BODY INFLAMMATION AND DYSTROPHIC CALCIFICATION, UNCERTAIN ETIOLOGY. NEGATIVE FOR ABSCESS, INFECTIOUS GRANULOMA OR INVASIVE NEOPLASM. MEDICAL HISTORY THIS INFORMATION WAS OBTAINED FROM THE CHART, PATIENT. 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 YES? COMPLETE ALL QUESTIONS.: YES LOCATION OF CANCER: NON-HODGKIN'S LYMPHOMA - IN REMISSION LASHONDA PARHAM [id number] 1955 SURGICAL HISTORY THIS INFORMATION WAS OBTAINED FROM THE PATIENT. PATIENT HAS A SURGICAL HISTORY OF: EXCISION OF PSEUDOTUMOR- 05/29/2024 (RIGHT PERINEAL REGION) BIOPSY OF NON HODGKIN'S LYMPHOMA- (RIGHT ARMPIT) OBJECTIVE VITALS HEIGHT/LENGTH: 74 IN (187.96 CM), WEIGHT: 201.81 LBS (91.73 KGS), BMI: 25.9, TEMPERATURE: 98.2 ?F (36.78 ?C), PULSE: 60 BPM, RESPIRATORY RATE: 16 BREATHS/MIN, BLOOD PRESSURE: 152/85 MMHG, PULSE OXIMETRY: 99 %. PHYSICAL EXAM CONSTITUTIONAL: GENERALIZED WEAKNESS. IN NO APPARENT DISTRESS. GOOD ATTENTION TO HYGIENE AND BODY HABITS. ALERT AND ORIENTED X 3. WELL NOURISHED. VITAL SIGNS REVIEWED AND NOTED. BLOOD PRESSURE NORMAL. PULSE RATE AND RHYTHM REGULAR. AFEBRILE. WEIGHT WNL. WELL DEVELOPED, WELL NOURISHED, AND IN NO ACUTE DISTRESS. ALERT AND ORIENTED X3. AMBULATES AND IS ABLE TO CHANGE POSITION WITHOUT ASSISTANCE. ALERT AND ORIENTED X 3. RESPIRATORY: EVEN RESPIRATIONS WITHOUT USE OF ACCESSORY MUSCLES. NO INTERCOASTAL RETRACTIONS NOTED. EVEN AND NON LABORED RESPIRATION. CARDIOVASCULAR: SEE LOWER EXTREMITY ASSESSMENT WHEN APPLICABLE. THERE IS NO PERIPHERAL EDEMA, CYANOSIS OR PALLOR. EXTREMITIES ARE WARM AND WELL PERFUSED. CAPILLARY REFILL IS LESS THAN 2 SECONDS. INTEGUMENTARY (HAIR, SKIN): SEE WOUND DESCRIPTION. NEUROLOGICAL: SENSATION: SYMMETRIC FUNCTION BY INFORMAL OBSERVATION. PSYCHIATRIC: ORIENTATION TO TIME, PLACE AND PERSON: NORMAL AFFECT WITH NORMAL THOUGHT PATTERN. MOOD AND AFFECT: NORMAL AFFECT WITH NORMAL THOUGHT PATTERN. 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 INITIAL WOUND ENCOUNTER MEASUREMENTS ARE 0.2CM LENGTH X 0.1CM WIDTH X 0.1 CM DEPTH, WITH AN AREA OF 0.02 SQ CM AND A VOLUME OF 0.002 CUBIC CM.INITIAL WOUND ENCOUNTER PREVIOUS MEASUREMENTS FROM 07/26/2024 ARE 1.5CM LENGTH X 0.3CM WIDTH X 1CM DEPTH, WITH AN AREA OF 0.45 SQ CM AND A VOLUME OF 0.45 CUBIC CM. ADIPOSE IS EXPOSED. TUNNELING HAS BEEN NOTED AT 6:00 WITH A MAXIMUM DISTANCE OF 0.2CM. NO SINUS TRACT HAS BEEN NOTED. NO UNDERMINING HAS BEEN NOTED. THERE WAS NO DRAINAGE NOTED. THE PATIENT REPORTS A WOUND PAIN OF LEVEL 0/10. THE WOUND MARGIN IS ROLLED WOUND BED HAS YES, BRIGHT RED, FIRM, GRANULATION, YES SLOUGH, NO ESCHAR, NO EPITHELIALIZATION. THE PERIWOUND SKIN EXHIBITED INDURATION. THE TEMPERATURE OF THE PERIWOUND SKIN IS WNL. PERIWOUND SKIN DOES NOT EXHIBIT SIGNS OR SYMPTOMS OF INFECTION. LOCAL PULSE IS N/A. ADDITIONAL INFORMATION OTHER DEVITALIZED TISSUE PRESENT: BIOFILM GUILLAUME/VASCULAR COMPLETED?: N/A ASSESSMENT ACTIVE PROBLEMS LASHONDA PARHAM [id number] 1955 ICD-10 (ENCOUNTER DIAGNOSIS) T81.89XD - OTHER COMPLICATIONS OF PROCEDURES, NOT ELSEWHERE CLASSIFIED, SUBSEQUENT ENCOUNTER (ENCOUNTER DIAGNOSIS) S31.501D - UNSPECIFIED OPEN WOUND OF UNSPECIFIED EXTERNAL GENITAL ORGANS, MALE, SUBSEQUENT ENCOUNTER PROCEDURES WOUND #1 WOUND #1 (SURGICAL WOUND) IS LOCATED ON THE RIGHT PERINEUM. A SELECTIVE DEBRIDEMENT WITH A TOTAL AREA DEBRIDED OF 0.02 SQ CM. WAS PERFORMED BY HUGO BRAR PA-C. TO REMOVE DEVITALIZED TISSUE: BIOFILM AND SLOUGH. THE FOLLOWING INSTRUMENT(S) WERE USED: CURETTE. PAIN CONTROL WAS ACHIEVED USING EMLA LIDOCAINE/PRILOCAINE 2.5%/2.5%. A TIME OUT WAS CONDUCTED PRIOR TO THE START OF THE PROCEDURE. NO BLEEDING OCCURRED. THE PROCEDURE WAS TOLERATED WELL WITH A PAIN LEVEL OF 0 THROUGHOUT AND A PAIN LEVEL OF 0 FOLLOWING THE PROCEDURE. POST DEBRIDEMENT MEASUREMENTS: 0.2CM LENGTH X 0.1CM WIDTH X 0.1CM DEPTH; WITH AN AREA OF 0.02 SQ CM AND A VOLUME OF 0.002 CUBIC CM. PLAN WOUND ORDERS: WOUND #1 RIGHT PERINEUM HAND HYGIENE HAND HYGIENE - WASH HANDS BEFORE AND AFTER WOUND CARE. CALL THE WOUND CENTER AT [phone] IF YOU HAVE SIGNS OR SYMPTOMS OF INFECTION, FEVER CHILLS OR SHAKES, INCREASED DRAINAGE, INCREASED ODOR OR UNUSUAL REDNESS. AFTER WOUND CENTER HOURS PLEASE NOTIFY YOUR PCP OR GO TO THE EMERGENCY ROOM. CLEANSER CLEANSE WOUND WITH NORMAL SALINE CLEANSE WOUND WITH HYPOCHLOROUS ACID (VASHE OR SIMILAR) THEN APPLY HYPOCHLOROUS ACID SOAKED 4X4 GAUZE TO WOUND BED FOR 5-10 MINUTES AFTER WOUND ASSESSMENT COMPLETED. PROCEDURE / ANESTHETIC 4% TOPICAL LIDOCAINE TO WOUND BED PRIOR TO PROCEDURE, IN CLINIC ONLY. TOPICAL TREATMENTS APPLY ANTIBIOTIC/ANTIMICROBIAL OINTMENT/CREAM TO THE WOUND BED. - IODOSORB PASTE, FILLING WOUND. DRESSING ORDERS APPLY DRESSING(S) AND SECURE WITH: - SILICONE BORDER SUPERABSORBENT DRESSING. DRESSING CHANGE FREQUENCY CHANGE DRESSING DAILY. ADDITIONAL ORDERS: OFF-LOADING / PRESSURE RELIEF OTHER ORDER: - AVOID DIRECT PRESSURE TO WOUND SITE MUCH POSSIBLE. LEAN FROM SIDE TO SIDE WHEN SITTING UPRIGHT. LAYING BACK WILL ASSIST WITH PRESSURE RELIEF. DIETARY TAKE VITAMIN C 1000MG BY MOUTH DAILY. TAKE ZINC 25MG BY MOUTH DAILY. INCREASE THE PROTEIN IN YOUR DIET. FOLLOW-UP APPOINTMENTS RETURN APPOINTMENT 1 WEEK SCRIBING ATTESTATION I ATTEST, THE NURSE, THAT I SCRIBED THESE ORDERS FOR THE WOUND CARE PROVIDER. PROVIDER REVIEW AND ATTESTATION: REVIEWED AND EVALUATED LABS. REVIEWED HOSPITAL RECORDS. DISCUSSED THE PLAN OF CARE @ BEDSIDE WITH - PATIENT LASHONDA PARHAM [id number] 1955 I AGREE AND ATTEST TO THE ABOVE INFORMATION PROVIDED FROM OTHER LICENSED PROFESSIONALS. PLAN OF CARE: 01. ENSURE/ESTABLISH OPTIMAL BLOOD FLOW : - REVIEWED, NOT APPLICABLE 02. ASSESS FOR/TREAT INFECTION : - EVALUATE FOR SIGNS AND SYMPTOMS OF INFECTION AND DOCUMENT FINDINGS. STATUS: CONTINUED DATE: 08/02/2024 03. DEBRIDE WEEKLY OR MORE OFTEN PRN : - EVALUATE PATIENT IN CENTER WEEKLY TO ASSESS WOUND BED AND MARGINS FOR NEED FOR DEBRIDEMENT. STATUS: CONTINUED DATE: 08/02/2024 - DEBRIDEMENT BY ANY METHOD TO REMOVE DEVITALIZED/NECROTIC TISSUE TO PROMOTE HEALING AND PREVENT FURTHER COMPLICATIONS. GOAL IS TO STIMULATE AND/OR MAINTAIN ACUTE PHASE OF WOUND HEALING BY REDUCING BACTERIAL BURDEN AND DEVITALIZED/NON-VIABLE TISSUE. STATUS: CONTINUED DATE: 08/02/2024 04. OPTIMIZE GLUCOSE CONTROL AND NUTRITION : - ORDER/REVIEW PERTINENT LABS TO EVALUATE RENAL FUNCTION, GLUCOSE CONTROL, AND NUTRITIONAL STATUS. STATUS: CONTINUED DATE: 08/02/2024 - COMPLETE A NUTRITION RISK ASSESSMENT. STATUS: COMPLETED DATE: 07/26/2024 05. OFFLOADING PLAN : - PROVIDE EDUCATION MATERIALS/DISCUSS OFFLOADING STRATEGIES APPROPRIATE. - PRESSURE RELIEF. STATUS: CONTINUED DATE: 08/02/2024 06. OPTIMIZE HOST FACTORS: - ASSESS AND REVIEW PATIENT HISTORY FOR WOUND ETIOLOGY, CO-MORBID CONDITIONS, MEDICATION REGIME, AND SMOKING HISTORY. STATUS: CONTINUED DATE: 08/02/2024 07. DRESSING SELECTION : - CHOOSE TOPICAL TREATMENTS AND/OR DRESSING BASED ON WOUND TYPE AND APPEARANCE, PERIWOUND SKIN CONDITION, WOUND SIZE AND DEPTH, ANATOMIC LOCATION, VOLUME OF EXUDATE, EDEMA IN THE LOWER EXTREMITIES, AND RISK OR PRESENCE OF INFECTION. STATUS: CONTINUED DATE: 08/02/2024 08. ADVANCED MODALITIES : - SET TREATMENT GOALS ACCORDING TO PATIENT AND/OR CAREGIVER?S ABILITY/ COMPLIANCE. STATUS: CONTINUED DATE: 08/02/2024 - RE-EVALUATE PLAN OF CARE IF NO EVIDENCE OF HEALING (40% IN 4 WEEKS). STATUS: CONTINUED DATE: 08/02/2024 09. FALL PREVENTION : - REVIEWED, NOT APPLICABLE 10. PAIN MANAGEMENT : - REVIEWED, NOT APPLICABLE 11. MEASURABLE GOALS FOR WOUND HEALING AND/OR HYPERBARIC OXYGEN THERAPY : - DECREASE WOUND DIMENSIONS STATUS: CONTINUED DATE: 08/02/2024 12. DURATION/FREQUENCY OF WOUND CARE VISITS : - 1X WEEKLY FOR 30 DAYS STATUS: CONTINUED DATE: 08/02/2024 DOING WELL CONTINUE WITH IODOSORB PASTE SECURED WITH BORDERED FOAM DRESSING LASHONDA PARHAM [id number] 1955 RECHECK 1 WEEK ELECTRONIC SIGNATURE(S) SIGNED BY: DATE: HUGO BRAR PA-C 08/02/2024 14:35:06 (PT) ENTERED BY: HUGO BRAR PA-C ON 08/02/2024 14:34:44 (PT) LASHONDA PARHAM [id number] 1955
== END ==
PROVIDERS: Referring Provider Student in an Organized Health Care Education/Training Program; Visit Provider Physician Assistant
DX: T81.89XA Other complications of procedures, not elsewhere classified, initial encounter (principal); S31.501A Unspecified open wound of unspecified external genital organs, male, initial encounter
CPT/HCPCS: 97597; 99213

== ENCOUNTER → 2024-08-09 09:23 | Outpatient (CLI) | payer MEDICARE, OTHER, SELFPAY | PROVIDERS: Visit Provider Physician Assistant | DX: T81.89XD Other complications of procedures, not elsewhere classified, subsequent encounter (principal); S31.501D Unspecified open wound of unspecified external genital organs, male, subsequent encounter | CPT/HCPCS: 99212; 99213 ==